=== PATIENT | female | born 1990 | race Caucasian/White ===

== ENCOUNTER 2017-06-29 06:50 | Emergency (ER) | payer OTHER ==
[~2017-06-29] VITALS: Ht 152.4 cm; Wt 60.5 kg
[~2017-06-29 06:50] MED LIST: NITR-58 PO
[2017-06-29 06:51] VITALS: Ht 152.4 cm; Wt 60.5 kg
[2017-06-29] MEDS ORDERED: CYCL-319 PO (07:32)
[2017-06-29] MEDS ORDERED: NAPR-260 PO (07:32)
--- NOTE | 2017-06-29 08:37 | ERD ---
ER Documentation Chief Complaint Date/Time DATE: 06/29/17 TIME: 08:36 Chief Complaint back pain HPI 27-year-old female presents to the emergency department complaining of bilateral lumbar back pain from lifting heavy objects at work couple days prior to being seen. Patient rates the pain 5 out of 10. She denies any saddle anesthesia, bladder or bowel incontinence. States she took ibuprofen earlier at 4:30 AM ROS All systems reviewed and are negative except as per history of present illness. Medications Home Meds Active Scripts Cyclobenzaprine Hcl* (Cyclobenzaprine Hcl*) 10 Mg Tablet, 10 MG PO TID, #30 TAB Prov:EMILY VALERIO PA-C 06/29/17 Naproxen* (Naprosyn*) 500 Mg Tablet, 500 MG PO BID Y for PAIN AND/OR INFLAMMATION, #30 TAB Prov:EMILY VALERIO PA-C 06/29/17 Nitrofurantoin Monohyd Macrocr* (Macrobid*) 100 Mg Capsr, 100 MG PO BID for 10 Days, CAP Prov:ORION COELLO DO 05/22/16 Allergies Allergies: Coded Allergies: No Known Allergy (Unverified , 05/22/16) PMhx/Soc History of Surgery: No Anesthesia Reaction: No Hx Neurological Disorder: No Hx Respiratory Disorders: No Hx Cardiac Disorders: No Hx Psychiatric Problems: No Hx Miscellaneous Medical Probl: No Hx Alcohol Use: No Hx Substance Use: No Hx Tobacco Use: No Smoking Status: Never smoker Physical Exam Vitals Vital Signs Date Time Temp Pulse Resp B/P Pulse Ox O2 Delivery O2 Flow Rate FiO2 06/29/17 06:51 97.6 70 18 129/70 99 Physical Exam Const: [] Head: Atraumatic Eyes: Normal Conjunctiva ENT: Normal External Ears, Nose and Mouth. Neck: Full range of motion..~ No meningismus. Resp: Clear to auscultation bilaterally Cardio: Regular rate and rhythm, no murmurs Abd: Soft, non tender, non distended. Normal bowel sounds Skin: No petechiae or rashes Back: No midline or flank tenderness Ext: No cyanosis, or edema Neur: Awake and alert Psych: Normal Mood and Affect Procedures/MDM 27-year-old female presents with lumbar back pain likely due to strain. I have a low suspicion for cauda equina, vertebral fracture or subluxation. Patient is neurovascular intact and stable to be discharged home to follow-up with PCP. Prescription for ibuprofen and Flexeril was provided. She understands return precautions. Departure Diagnosis: Primary Impression: Back pain Condition: Stable Patient Instructions: Back Pain (Acute Or Chronic) Additional Instructions: FOLLOW UP WITH YOUR PRIMARY CARE PHYSICIAN TOMORROW.Return to this facility if you are not improving as expected. Take all medicines as directed. Return to this facility if you are not improving as expected. EMILY VALERIO PA-C Jun 29, 2017 08:37
== END 2017-06-29 08:14 | disposition home or self-care (01) ==
LOC: FTE 06:50
DX: M54.5 Low back pain (principal)
CPT/HCPCS: 99283